=== PATIENT | female | born 1985 | race African-American/Black ===

== ENCOUNTER 2022-08-14 22:47 | Emergency (ER) | payer MEDICAID, OTHER ==
[~2022-08-14] VITALS: Ht 160 cm; Wt 65.9 kg
[2022-08-15] MEDS ORDERED: CEPH-510 PO (01:31)
[2022-08-15] MEDS ORDERED: ACET-1158 PO (01:31)
[2022-08-15] MEDS ORDERED: IBUP800T26 PO (01:31)
[2022-08-15 02:37] VITALS: BP 144/90
[2022-08-15] MEDS: TETANUS-DIPTH-ACEL PERTUSSIS 0.5ML SYR Tdap IM ONE (02:41)
== END 2022-08-15 01:31 | disposition home or self-care (01) ==
LOC: ER 22:47
DX: S62.636B Displaced fracture of distal phalanx of right little finger, initial encounter for open fracture (principal); Y08.89XA Assault by other specified means, initial encounter; Y93.89 Activity, other specified; Y92.89 Other specified places as the place of occurrence of the external cause; Y99.8 Other external cause status
CPT/HCPCS: 29130; 73130; 90471; 90715

== ENCOUNTER 2022-08-18 07:20 | Emergency (ER) | payer MEDICAID ==
[~2022-08-18] VITALS: Ht 160 cm; Wt 65.0 kg
[~2022-08-18 07:20] MED LIST: ACET-1158 PO; CEPH-510 PO; IBUP800T26 PO
[2022-08-18 08:45] LABS: Urine Bacteria NONE SEEN /hpf (None Seen); Urine Blood TRACE /uL (Negative); Urine Mucus FEW (None Seen); Urine Specific Gravity 1.008 (1.001-1.035); Urine WBC 1 /hpf (0 - 5)
[2022-08-18] MEDS ORDERED: FAMOTIDINE 20 MG TAB PO ONE (08:45)
[2022-08-18] MEDS ORDERED: MAALOX PLUS or MAALOX 30 ML PO ONE (08:45)
[2022-08-18] MEDS ORDERED: ONDANSETRON ODT 4 MG TAB PO ONE (08:45)
[2022-08-18] MEDS ORDERED: ONDA-144 PO (09:39)
[2022-08-18 10:07] VITALS: BP 167/91
== END 2022-08-18 10:09 | disposition home or self-care (01) ==
LOC: ER 07:20
DX: R11.2 Nausea with vomiting, unspecified (principal); R19.7 Diarrhea, unspecified; R10.13 Epigastric pain
CPT/HCPCS: 81001; 81025; Q0162